=== PATIENT | male | born 1935 | race Caucasian/White ===

== ENCOUNTER 2018-07-20 08:48 | Emergency (ER) | payer MEDICARE ==
[2018-07-20 09:41] LABS: ANION GAP 15 (6-22 (CALC)); BUN 22 mg/dL (8-23); BUN/CREATININE RATIO 18 (12-20 (CALC)); CARBON DIOXIDE 22 mmol/l (22-30); CHLORIDE 107 mmol/l (95-108); CREATININE 1.2 mg/dL (0.7-1.3); GFR 58 ML/MIN (>=60 (CALC)); GFR FOR AFR.AMER. > 60 ML/MIN (>=60 (CALC)); SODIUM 141 mmol/l (137-146)
[2018-07-20] MEDS ORDERED: IMODIUM2 MG PO (09:54)
[2018-07-20 10:24] VITALS: BP 141/70
== END 2018-07-20 10:42 | disposition home or self-care (01) ==
LOC: ED 08:48
PROVIDERS: Family Medicine
DX: K52.9 Noninfective gastroenteritis and colitis, unspecified (principal); I48.91 Unspecified atrial fibrillation; K21.9 Gastro-esophageal reflux disease without esophagitis